=== PATIENT | female | born 1955 | race Two or more races ===

== ENCOUNTER 2025-03-27 09:19 | Outpatient (CLI) | payer OTHER ==
[2025-03-27 09:55] LABS: Urine Protein, UAD Negative (Negative)
[2025-03-27 10:10] LABS: Hematocrit 42.7 % (36.0-46.0); Hemoglobin 14.5 g/dL (12.2-16.2); Mean Corpuscular Hemoglobin 30.2 pg (28.0-32.0); Mean Corpuscular Volume 89.3 fL (80.0-100.0); Nucleated Red Blood Cells % 0.1 %
[2025-03-27 10:11] LABS: Alanine Aminotransferase 26 U/L (7-40); Albumin 4.5 g/dL (3.2-4.8); Alkaline Phosphatase 59 U/L (46-116); Anion Gap 10 (5-15); BUN/Creatinine Ratio 11.0 (10.0-20.0); Calcium 9.6 mg/dL (8.7-10.4); Carbon Dioxide 26 mmol/L (20-31); Chloride 104 mmol/L (98-107); Cholesterol 145 mg/dL (< 200); Potassium 4.4 mmol/L (3.5-5.1); Sodium 140 mmol/L (136-145); Total Protein 7.5 g/dL (5.7-8.2); Triglycerides 99 mg/dL (< 150)
[2025-03-27 10:12] LABS: Bilirubin, Total 0.7 mg/dL (0.2-1.0); HDL Cholesterol 51 mg/dL (40-59)
[2025-03-27 10:20] LABS: Blood Urea Nitrogen 9 mg/dL (9-23); Glucose 139 mg/dL (74-106); Microalb/Creat Ratio, Urine 4.00
== END 2025-03-27 17:00 | disposition home or self-care (01) ==
LOC: LAB 09:19
PROVIDERS: ATTEND Student in an Organized Health Care Education/Training Program
DX: I10 Essential (primary) hypertension (principal); E11.9 Type 2 diabetes mellitus without complications; E55.9 Vitamin D deficiency, unspecified; Z15.89 Genetic susceptibility to other disease
CPT/HCPCS: 36415; 80053; 80061; 81001; 82043; 82306; 82570; 83036; 84443; 85025; 86301

== ENCOUNTER 2025-04-15 09:50 | Outpatient (CLI) | payer OTHER | END 2025-04-15 17:00 | disposition home or self-care (01) | LOC: LAB 09:50 | PROVIDERS: ATTEND Student in an Organized Health Care Education/Training Program | DX: N39.0 Urinary tract infection, site not specified (principal); R10.13 Epigastric pain | CPT/HCPCS: 83013; 87086 ==

== ENCOUNTER 2025-04-23 11:14 | Outpatient (CLI) | payer OTHER | END 2025-04-25 17:00 | disposition home or self-care (01) | LOC: LAB 11:14 | PROVIDERS: ATTEND Student in an Organized Health Care Education/Training Program | DX: N39.0 Urinary tract infection, site not specified (principal) | CPT/HCPCS: 87086 ==

== ENCOUNTER → 2025-04-26 | Outpatient (CLI) | payer OTHER ==
[2025-04-26 10:52] LABS: Hematocrit 41.3 % (36.0-46.0); Hemoglobin 13.8 g/dL (12.2-16.2); Mean Corpuscular Hemoglobin 30.1 pg (28.0-32.0); Mean Corpuscular Volume 90.2 fL (80.0-100.0); Nucleated Red Blood Cells % 0.0 %
[2025-04-26 11:08] LABS: Alanine Aminotransferase 32 U/L (7-40); Alkaline Phosphatase 65 U/L (46-116); Anion Gap 10 (5-15); BUN/Creatinine Ratio 10.3 (10.0-20.0); Calcium 9.5 mg/dL (8.7-10.4); Carbon Dioxide 27 mmol/L (20-31); Chloride 104 mmol/L (98-107); Potassium 4.4 mmol/L (3.5-5.1); Sodium 141 mmol/L (136-145)
[2025-04-26 11:09] LABS: Albumin 4.4 g/dL (3.2-4.8); Total Protein 7.2 g/dL (5.7-8.2)
[2025-04-26 11:10] LABS: Bilirubin, Total 0.6 mg/dL (0.2-1.0)
[2025-04-26 11:13] LABS: Blood Urea Nitrogen 8 mg/dL (9-23); Glucose 108 mg/dL (74-106)
== END | disposition home or self-care (01) ==
LOC: LAB 09:29
PROVIDERS: ATTEND Internal Medicine
DX: C50.912 Malignant neoplasm of unspecified site of left female breast (principal)
CPT/HCPCS: 36415; 80053; 83615; 85025; 86300; 86304